=== PATIENT | male | born 1945 | race African-American/Black ===

== ENCOUNTER 2024-05-17 09:45 | Inpatient (IN) ==
--- NOTE | 2024-05-17 09:55 | ED.PDOC ---
General ED Provider: Dr. TONY KHAN MD Chief Complaint: Respiratory Complaint Stated Complaint: This 78 y/o black male comes in by EMS from home. Relatives found him breathing but unresponsive at his address, and called EMS. Last known well is not know for today (would be yesterday when people that were there saw him) he was noted to have vomitus on him and around him on the floor - it is not know if he might have aspirated. He also vomited at least twice while en route via EMS. He IS breathing on his own. He is a dialysis patient. Time Seen by Provider: 05/17/24 09:47 Mode of Arrival: Stretcher Information Source: EMT Exam Limitations: Clinical condition Nursing and Triage Documentation Reviewed and Agree: Yes What is Opioid Naive?: *Opioid Naive implies the patient is not already taking opioids or not chronically receiving opioids on a daily basis. *PRN dosing is not "usually" associated with tolerance. *Patients are at higher risk of over-sedation and aspiration. What is Opioid Tolerant?: *Opioid Tolerance implies less than the expected response to an opioid. *Acquired tolerance is defined by the patient taking 60mg of oral morphine daily (or equianalgesic dose of another opioid) for 1 week or more. *Often associated with chronic pain. *May take more than usual dose to achieve desired pain control. Review of Systems Review Of Systems Constitutional: Reports Other (Patient is unresponsive and no family or friends are here for him, so not much is know of ROS.) Cardiac: Reports Other (atrial fibrillation) GI: Reports Vomiting Neurological: Reports Other (Patient appears completely unresponsive and we see no movements in upper or lower exts) Physical Exam Physical Exam Appearance: Reports Not Applicable (Unresponsive black male with pinpoint pupils. ) Ill-appearing: Not Applicable Pain Distress: Not Applicable Eyes: Reports Other (decreased pupils) ENT: Reports Ears normal, Nose normal and Oropharynx normal Neck: Supple Respiratory: Reports Airway patent and Rhonchi Cardiovascular: Reports Irregular rhythm GI/: Reports Soft and Bowel sounds normal Musculoskeletal: Reports Other (no purpousful movements) Skin: Reports Warm and Dry Neurological: Reports Disoriented and Unresponsive Course Course 05/17/24 10:04 05/17/24 10:04 Orders, Labs, Meds: Lab Review 05/17/24 05/17/24 05/17/24 09:50 09:57 10:04 WBC 10.84 H RBC 4.17 L Hgb 12.7 L Hct 38.6 L MCV 92.6 MCH 30.5 MCHC 32.9 RDW Coeff of Graham 14.9 H Plt Count 239 Immature Gran % (Auto) 0.5 Neut % (Auto) 86.4 H Lymph % (Auto) 9.6 L Licking % (Auto) 2.7 Eos % (Auto) 0.4 Baso % (Auto) 0.4 Neut # (Auto) 9.4 H Lymph # (Auto) 1.0 Licking # (Auto) 0.3 L Eos # (Auto) 0.0 Baso # (Auto) 0.0 Immature Gran # (Auto) 0.1 Puncture Site Rbr Base Excess -5.2 L O2 Saturation 99.8 H ABG pH 7.31 L ABG pCO2 42.0 ABG pO2 229.0 H ABG HCO3 21.1 ABG Total CO2 22.4 Diaz Test + Hemoglobin 1.3 Oxyhemoglobin 95.7 Carboxyhemoglobin 3.1 H Total Hemoglobin 13.0 O2 Delivery Device Ambu FiO2 % 100.0 Sodium 137.0 Potassium 4.78 Chloride 108.1 H Carbon Dioxide 19.6 L Anion Gap 14.08 BUN 40.3 H Creatinine 3.38 H Estimated GFR (MDRD) 18.00 BUN/Creatinine Ratio 11.92 Glucose 214.7 H Lactic Acid 1.63 Calcium 8.71 Magnesium 1.83 Total Bilirubin 0.66 AST 30.0 ALT 25.6 Alkaline Phosphatase 107.1 Troponin I 0.261 H NT-Pro-B Natriuret Pep 62437 H Total Protein 8.16 Albumin 3.96 Globulin 4.20 Albumin/Globulin Ratio 0.94 Urine Color Light Urine Clarity Clear Urine pH 5.5 Ur Specific Chunky 1.025 Urine Protein 3+ H Urine Glucose (UA) Trace H Urine Ketones Negative Urine Blood 2+ H Urine Nitrite Negative Urine Bilirubin Negative Urine Urobilinogen 0.2 Ur Leukocyte Esterase Negative Urine Microscopic RBC 10-20 Urine Microscopic WBC 0-2 Ur Squamous Epith Cells Not present Ur Renal Epithelial Cell 2-5 Urine Bacteria Trace Hyaline Casts 0-2 Granular Casts 2-5 Fine Granular Casts 5-10 Urine Mucus Trace Urine Opiates Screen Negative Ur Oxycodone Screen Negative Urine Methadone Screen Negative Ur Barbiturates Screen Negative U Tricyclic Antidepress Negative Ur Phencyclidine Scrn Negative Ur Amphetamine Screen Negative U Methamphetamines Scrn Negative U Benzodiazepines Scrn Negative Urine Cocaine Screen Negative U Cannabinoids Screen Negative Influ A Molecular Assay Negative by naat Influ B Molecular Assay Negative by naat RSV Antigen Negative by naat SARS CoV-2 RNA Rapid CRISTINO Negative 05/17/24 05/17/24 11:29 14:33 WBC RBC Hgb Hct MCV MCH MCHC RDW Coeff of Graham Plt Count Immature Gran % (Auto) Neut % (Auto) Lymph % (Auto) Licking % (Auto) Eos % (Auto) Baso % (Auto) Neut # (Auto) Lymph # (Auto) Licking # (Auto) Eos # (Auto) Baso # (Auto) Immature Gran # (Auto) Puncture Site Rbr Rbrach Base Excess -5.0 L -4.6 L O2 Saturation 98.4 H 95.6 ABG pH 7.40 7.35 ABG pCO2 32.0 L 38.0 ABG pO2 113.0 H 83.0 L ABG HCO3 19.8 L 21.0 ABG Total CO2 20.8 22.2 Diaz Test + Na Hemoglobin 1.6 H 1.5 Oxyhemoglobin 94.7 L 94.6 L Carboxyhemoglobin 3.3 H 2.2 H Total Hemoglobin 13.1 13.2 O2 Delivery Device Venti mask FiO2 % 50.0 50.0 Sodium Potassium Chloride Carbon Dioxide Anion Gap BUN Creatinine Estimated GFR (MDRD) BUN/Creatinine Ratio Glucose Lactic Acid Calcium Magnesium Total Bilirubin AST ALT Alkaline Phosphatase Troponin I NT-Pro-B Natriuret Pep Total Protein Albumin Globulin Albumin/Globulin Ratio Urine Color Urine Clarity Urine pH Ur Specific Chunky Urine Protein Urine Glucose (UA) Urine Ketones Urine Blood Urine Nitrite Urine Bilirubin Urine Urobilinogen Ur Leukocyte Esterase Urine Microscopic RBC Urine Microscopic WBC Ur Squamous Epith Cells Ur Renal Epithelial Cell Urine Bacteria Hyaline Casts Granular Casts Fine Granular Casts Urine Mucus Urine Opiates Screen Ur Oxycodone Screen Urine Methadone Screen Ur Barbiturates Screen U Tricyclic Antidepress Ur Phencyclidine Scrn Ur Amphetamine Screen U Methamphetamines Scrn U Benzodiazepines Scrn Urine Cocaine Screen U Cannabinoids Screen Influ A Molecular Assay Influ B Molecular Assay RSV Antigen SARS CoV-2 RNA Rapid CRISTINO Orders Category Date Time Status ADMIT PATIENT INPATIENT .TO [facility] (MONITORED BED) ADMISSION 05/17/24 17:51 Active ABG DRAW REQUEST Stat CARDIO 05/17/24 09:50 Completed ABG DRAW REQUEST Stat CARDIO 05/17/24 11:20 Completed ABG DRAW REQUEST Stat CARDIO 05/17/24 14:21 Completed EKG-(ED ONLY) Stat CARDIO 05/17/24 09:55 Completed VENTILATOR Routine CARDIO 05/17/24 15:40 Active TELEMETRY MONITORING TELE CARE 05/17/24 17:51 Active ABG COOX Stat LAB 05/17/24 09:50 Completed ABG COOX Stat LAB 05/17/24 11:29 Completed ABG COOX Stat LAB 05/17/24 14:33 Completed BLOOD CULTURE Stat LAB 05/17/24 11:25 Received CBC W/ AUTO DIFF Stat LAB 05/17/24 10:04 Completed CMP [COMPREHENSIVE METABOLIC PANEL] Stat LAB 05/17/24 10:04 Completed COVID [SARS COV-2 RNA RAPID CRISTINO] Stat LAB 05/17/24 09:57 Completed FLU A & B MOLECULAR [FLU A/B MOLECULAR] Stat LAB 05/17/24 09:57 Completed LACTIC ACID Stat LAB 05/17/24 10:04 Completed MAGNESIUM Stat LAB 05/17/24 10:04 Completed NT-PROBNP(ED) Stat LAB 05/17/24 10:04 Completed RSV Stat LAB 05/17/24 09:57 Completed TROPONIN I Stat LAB 05/17/24 10:04 Completed URINALYSIS C & S IF INDICATED Stat LAB 05/17/24 09:57 Completed URINE DRUG SCREEN (RAPID FOR ED) [DRUG SCREEN, URINE, LAB 05/17/24 09:57 Completed RAPID] Stat Ketamine Meds 05/17/24 14:00 Discontinued 100 mg IVP ONCE ONE Labetalol HCl [Trandate] Meds 05/17/24 15:24 Discontinued 20 mg IVP ONCE ONE Labetalol HCl [Trandate] Meds 05/17/24 16:19 Discontinued 20 mg IVP ONCE ONE Propofol Inj [Diprivan 1,000 mg/100 ml Vial] Meds 05/17/24 14:30 Active 1,000 mg in 100 ml IV TITRATION Propofol Inj [Diprivan 20 ml Vial] Meds 05/17/24 13:54 Discontinued 20 mg IVP ONCE ONE Rocuronium Jasper [Zemuron] Meds 05/17/24 13:54 Discontinued 50 mg IVP ONCE STA CHEST, 1V AP ONLY Stat RADS 05/17/24 09:48 Completed CHEST, 1V AP ONLY Stat RADS 05/17/24 13:[address] HEAD W/O CONTRAST Stat RADS 05/17/24 09:48 Completed Medications Generic Name Dose Route Start Last Admin Trade Name Freq PRN Reason Stop Dose Admin Propofol 1,000 mg in 100 mls @ 3.402 mls/hr 05/17/24 14:30 05/17/24 14:55 Diprivan 1,000 Mg/100 Ml Vial IV 5 mcg/kg/min TITRATION ALEYDA 3.4 mls/hr Administration Protocol 5 MCG/KG/MIN Discontinued Medications Generic Name Dose Route Start Last Admin Trade Name Freq PRN Reason Stop Dose Admin Ketamine HCl 100 mg 05/17/24 14:00 05/17/24 13:41 Ketamine Hcl 200 Mg/20 Ml Sdv IVP 05/17/24 14:01 100 mg ONCE ONE Administration Labetalol HCl 20 mg 05/17/24 15:24 05/17/24 15:34 Labetalol Hcl 20 Mg/4 Ml Disp.Syrin IVP 05/17/24 15:25 20 mg ONCE ONE Administration Labetalol HCl 20 mg 05/17/24 16:19 05/17/24 16:45 Labetalol Hcl 20 Mg/4 Ml Disp.Syrin IVP 05/17/24 16:20 20 mg ONCE ONE Administration Propofol 20 mg 05/17/24 13:54 05/17/24 14:04 Propofol Inj 200 Mg/20 Ml Vial IVP 05/17/24 13:55 20 mg ONCE ONE Administration Rocuronium Jasper 50 mg 05/17/24 13:54 05/17/24 13:42 Rocuronium Jasper 50 Mg/5 Ml Sdv IVP 05/17/24 13:55 50 mg ONCE STA Administration Vital Signs: Temp Pulse Resp BP Pulse Ox O2 Flow Rate 05/17/24 17:10 18 05/17/24 16:09 18 05/17/24 13:55 18 05/17/24 10:00 10 05/17/24 09:47 97.2 F L 92 12 198/104 H 100 Discharge Plan Discharge Patient Disposition: ADMITTED INPATIENT Discharge Problem: Cerebrovascular accident, hemorrhagic Did you review [place] PRICE ECONOMIST for ALL controlled substances?: Not Applicable ED Provider: TONY KHAN Condition: Critical Physician Progress Note: We are getting ABG's, CxR, EKG, CBC, CMP, BnP, LA, BC, Mag, UA, UDS, COVID/Flu/RSV - We do note that the patient's BP is quite high, so considering symptoms and BP, a CVA is certainly a possibility. He is still maintaining good breathing on his own, but I am vigilant on him - any emesis here or dyspnea/apnea and we will intubate immediately. His spO2 = 98 %. We have since learned that the patient [facility], and he is a heavy smoker and drinker of EtOH. He just had the AV fistula placed not long ago, and has not yet been used according to the [facility]. We took the patient to CT, and just upon perusal of the head scan, it appeared to me that he had a bleed/infarct in the area of the hans. Chest Xray showed cardiomegaly with mild interstitial edema. CBC showed all values adequate and CMP showed normal serum electrolytes with advance renal failure. BUN = 40, CR = 3.4 and Glucose = 214. Troponin I is elevated = 0.261 and BnP is very high = 14,700. ABG's show pH = 7.31, pCO2 = 42, pO2 = 229, Sat = 99.8%. His BP = 224/112, P = 75 irregular, RR = 14, Afebrile. EKG - Tracing showed a LBBB, so no further analysis can be taken, he is in atrial fibrillation and a large amount of baseline wander. Rate = 89 BPM and QRS duration [address] segment can not be interpreted due to LBBB. Read and interpreted by me: Dr. Tony Kahn MD Radiologist called and confirmed the CT of the HEAD showed a large hemorrhagic infarct in the hans area, with effacement of the 4th ventricle. I am not certain how he is still breathing, but he is. Still otherwise unresponsive. We have still not been able to locate any family and no one has shown up for this gentleman. We were able to locate a checking clerk that comes by and helps this gentleman, and she gave us some family. He has a brother, Ang, and we called him and I spoke to he and his , and they are coming in from [place]. He also has a son, and they said they would try and locate him. We will get another ABG, so far, airway has not been in jeopardy. RAPID SEQUENCE INTUBATION Patient was having increased secretions, and attempted an emesis, which we quickly suctioned. At this point, we had to secure his airway to prevent aspiration. Ketamine 100 mg IV was given followed by Propofol 20 mg IV, the Rocuronium 50 mg IV. Intubation swiftly accomplished first attempted with 7.5 ET tube via glidascope, colorimetric CO2 change noted quickly. Chest Xray showed ET tube at clavicular level, so we advanced to 26 at the lip, and he is down nicely now at bifurcation. I spoke with Dr House, Neuro at [facility], and she said we had done well so far, but she would start lowering BP slowly at this time - suggested dosing on Labetalol 10 mg until we get systolic around 150 - 180, then possibly a Cardene drip, we will do so and I have given first dose of Labetalol. I then spoke with Dr. Don NEUROSURGEON who commended our care so far, but said there was not a lot else that could be done. He thought a talk with the family about [facility] to be the best course, and he would NOT consider doing a 4th ventricle drainage at this time, but they were too booked up at this time to accept the patient. He agreed that Bp should be brought down, SLOWLY to target level at this time... but there was truly not much hope here. I spoke with [facility] neuro in [facility], Dr. Dunn, neurosurgeon, and she reiterated what Dr. Don had told us; The patient has a very dismal outlook, and it is a waste of resources to move him. No drainage of the ventricle would be attempted, and the patient would be developing huydrocephalus in the near future. She said [facility] should be discussed, which I did with the family, and he would be just as well severed in our hospital as any, and should be kept comfortable. I will talk with the hospitalist here. The family has all stated that they agree he is DO NOT RESUSCITATE (DNR) here now. I spoke with Ms Chucho Ledbetter who is on for hospitalist and gave her the full story. She is fine with placing patient on floor, with [facility], and pain medication. When family is ready, and they have everyone there that they want, I would extubate, which is her plan as well.
[2024-05-17 10:09] LABS: BASOPHILS % (AUTO) 0.4 % (0.0-3.0); EOSINOPHILS % (AUTO) 0.4 % (0.0-7.0); HEMATOCRIT 38.6 % (42.0-52.0); HEMOGLOBIN 12.7 g/dl (14.0-18.0); IMMATURE GRANULOCYTE # (AUTO) 0.1 (0.0-1.0); IMMATURE GRANULOCYTE % (AUTO) 0.5 % (0.0-5.0); LYMPHOCYTES % (AUTO) 9.6 (10.0-50.0); MEAN CORPUSCULAR HEMOGLOBIN 30.5 pg (27.0-31.0); MEAN CORPUSCULAR HGB CONC 32.9 (31.8-35.4); MEAN CORPUSCULAR VOLUME 92.6 fl (80.0-94.0); MONOCYTES # (AUTO) 0.3 K/uL (0.4-2.0); MONOCYTES % (AUTO) 2.7 (0-10); NEUTROPHILS # (AUTO) 9.4 K/ul (2.0-6.9); NEUTROPHILS % (AUTO) 86.4 % (42.2-75.2); PLATELET COUNT 239 10^3/uL (140-440); RDW COEFFICIENT OF VARIATION 14.9 % (11.6-14.8); RED BLOOD COUNT 4.17 10^6/ul (4.70-6.10); WHITE BLOOD COUNT 10.84 K/ul (4.2-10.2)
[2024-05-17 10:14] LABS: BILIRUBIN,URINE Negative (NEGATIVE); CLARITY,URINE Clear (CLEAR); COLOR,URINE Light (YELLOW); GLUCOSE, URINE (UA) Trace (NEGATIVE); KETONES,URINE Negative (NEGATIVE); LEUKOCYTE ESTERASE ,URINE Negative (NEGATIVE); NITRITE,URINE Negative (NEGATIVE); PH,URINE 5.5 (5-9); PROTEIN,URINE 3+ (NEGATIVE); URINE, BLOOD 2+ (NEGATIVE); UROBILINOGEN,URINE 0.2 (0.2)
[2024-05-17 10:15] LABS: SQUAMOUS EPITHELIAL CELL,UR NOT PRESENT (0-5)
[2024-05-17 10:25] LABS: BACTERIA,URINE TRACE (NOT PRESENT); HYALINE CASTS, URINE 0-2 (NOT PRESENT); URINE WBC, MICROSCOPIC 0-2 (0-2)
[2024-05-17 10:25] LABS: ALANINE AMINOTRANSFERASE 25.6 U/L (0-50); ALBUMIN 3.96 g/dL (3.5-5.0); ALKALINE PHOSPHATASE 107.1 U/L (56-119); BILIRUBIN,TOTAL 0.66 mg/dL (0.2-1.3); BLOOD UREA NITROGEN 40.3 mg/dL (9-20); CALCIUM 8.71 mg/dL (8.4-10.2); CARBON DIOXIDE 19.6 mmol/L (22-30.0); CHLORIDE 108.1 mmol/L (98-107); CREATININE 3.38 mg/dL (0.60-1.10); GLUCOSE 214.7 mg/dL (74-106); MAGNESIUM 1.83 mg/dL (1.6-2.3); POTASSIUM 4.78 mmol/L (3.5-5.1); TOTAL PROTEIN 8.16 g/dL (6.3-8.2)
[2024-05-17 10:26] LABS: AMPHETAMINE SCREEN,URINE NEGATIVE (NEGATIVE); BARBITURATE SCREEN,URINE NEGATIVE (NEGATIVE); BENZODIAZEPINES SCREEN,URINE NEGATIVE (NEGATIVE); CANNABINOID SCREEN,URINE NEGATIVE (NEGATIVE); COCAIN SCREEN,URINE NEGATIVE (NEGATIVE); METHADONE URINE SCREEN NEGATIVE (NEGATIVE); METHAMPHETAMINES SCREEN,URINE NEGATIVE (NEGATIVE); MUCUS,URINE TRACE (NOT PRESENT); OPIATE SCREEN,URINE NEGATIVE (NEGATIVE); OXYCODONE URINE SCREEN NEGATIVE (NEGATIVE); PHENCYCLIDINE SCREEN,URINE NEGATIVE (NEGATIVE); TRICYCLIC ANTIDEPRESSANTS URIN NEGATIVE (NEGATIVE)
--- NOTE | 2024-05-17 10:27 | DI ---
EXAM: CHEST RADIOGRAPH TECHNIQUE: Single frontal chest radiograph. HISTORY: Shortness of breath. COMPARISON: 08/19/2015 FINDINGS: EKG leads and monitoring pads project over the chest No pulmonary infiltrate is identified. No pleural effusion or pneumothorax is seen. Interval development of mild cardiomegaly and engorgement with indistinctness of the central pulmonar y vessels. No acute displaced rib fractures are identified. IMPRESSION: 1. Cardiomegaly and mild interstitial edema.
[2024-05-17 10:28] LABS: MOLECULAR FLU A NEGATIVE BY NAAT (NEGATIVE); MOLECULAR FLU B NEGATIVE BY NAAT (NEGATIVE); RSV MOLECULAR NEGATIVE BY NAAT (NEGATIVE); SARS COV-2 RNA RAPID NAAT NEGATIVE (NEGATIVE)
--- NOTE | 2024-05-17 10:36 | CT ---
EXAM: CT OF THE BRAIN WITHOUT CONTRAST CLINICAL INDICATION: unresponsive COMPARISON: None. PROCEDURE: Contiguous axial tomographic sections were obtained from the skull base to the vertex. FINDINGS: There is moderate generalized cerebral involutional change. There are moderate patchy areas of hypodensity in the periventricular white matter, nonspecific but most commonly encountered in the setting of chronic microvascular disease. There is a large area of acute high density intraparenchymal hemorrhage involving the hans measuring approximately 3.6 x 3.5 by a 1.9 cm. There is extension of hemorrhage to the dorsal aspect of the po ns. There is effacement of the adjacent fourth ventricle. No evidence of a gross extra-axial hemorr karen. No midline shift or uncal herniation. No transtentorial herniation. Mild ethmoid mucosal thickening. Complete consolidation right maxillary sinus. Moderate right masto id effusions. the visualized portions of the globes and orbits appear normal. No acute calvarial abn ormalities are seen. IMPRESSION: 1. Abnormal exam. Large acute and parenchymal pontine hemorrhage. Mild effacement of the fourth vent ricle. 2. Moderate involutional change of the brain and suspected sequelae of microvascular disease. 3. Chronic sinus disease as above . Right mastoid effusions. 4. Notification: Above impression and recommendations were discussed by telephone with Khan on 2024 at 10:29 by Mohsen Resendiz MD. All CT scans are performed using dose optimization techniques as appropriate to the performed exam an d include at least one of the following: Automated exposure control, adjustment of the mA and/or kV according t o size, and the use of iterative reconstruction technique.
[2024-05-17 10:37] LABS: TROPONIN I 0.261 ng/ml (0.0000-0.120)
[2024-05-17 11:01] LABS: ABG O2 HGB 95.7 % (95-100); ABG PH 7.31 (7.35-7.45); BEecf -5.2 (-2.0-3.0); COHb 3.1 (0.5-1.5); HCO3 21.1 (21-28); MetHb 1.3 (0-1.5); TCO2 22.4 (19-24); sO2 99.8 % (94-98)
[2024-05-17 11:33] LABS: ABG O2 HGB 94.7 % (95-100); COHb 3.3 (0.5-1.5); HCO3 19.8 (21-28); MetHb 1.6 (0-1.5); TCO2 20.8 (19-24); sO2 98.4 % (94-98); tHb 13.1 g/dl (11.7-17.4)
[2024-05-17] MEDS: KETAMINE IVP ONE (13:41)
[2024-05-17] MEDS: ZEMURON IVP STA (13:42)
[2024-05-17] MEDS ORDERED: KETAMINE IV ONE (13:54)
[2024-05-17] MEDS ORDERED: SODIUM CHLORIDE IV ONE (13:54)
[2024-05-17] MEDS: DIPRIVAN 20 ML VIAL IVP ONE (14:04)
--- NOTE | 2024-05-17 14:10 | DI ---
EXAM: CHEST RADIOGRAPH TECHNIQUE: Single frontal chest radiograph. HISTORY: Tube placement COMPARISON: 05/17/2024 FINDINGS: There is bibasilar atelectasis, right greater than left. Endotracheal tube is above the garcia in th e middle of the trachea. Mild cardiomegaly. The osseous structures are unremarkable. IMPRESSION: 1. Placement of endotracheal tube with bibasilar atelectasis
[2024-05-17] MEDS: DIPRIVAN 1,000 MG/100 ML VIAL 1,000 MG/100 ML INFUS..BTL IV SCH (14:55)
[2024-05-17 15:00] LABS: ABG PH 7.35 (7.35-7.45)
[2024-05-17 15:01] LABS: BEecf -4.6 (-2.0-3.0); COHb 2.2 (0.5-1.5); MetHb 1.5 (0-1.5); TCO2 22.2 (19-24); sO2 95.6 % (94-98); tHb 13.2 g/dl (11.7-17.4)
[2024-05-17 15:03] LABS: ABG O2 HGB 94.6 % (95-100)
[2024-05-17] MEDS: TRANDATE IVP ONE ×2 (15:34→16:45)
[2024-05-17] MEDS ORDERED: ATIVAN IVP PRN (18:53)
[2024-05-17] MEDS: TRANSDERM-SCOP 1.5 MG PATCH TD SCH (21:37)
[2024-05-17 23:10] VITALS: BMI 32.8
[2024-05-18] MEDS: TRANDATE IVP PRN (05:52)
[2024-05-18] MEDS: ZOFRAN SDV IVP PRN (09:16)
[2024-05-18] MEDS: MORPHINE 2 MG/ML SYRINGE IVP PRN (09:49)
[2024-05-18 09:56] VITALS: RESP 18
--- NOTE | 2024-05-18 11:24 | DI ---
EXAM: SINGLE-VIEW ABDOMEN HISTORY: Tube placement COMPARISON: None. FINDINGS: / impression: There is bibasilar consolidation. Enteric tube extends into the upper body o f the stomach. There is a nonobstructive bowel gas pattern.. 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 i
--- NOTE | 2024-05-18 12:47 | PCM ---
Date of Service Date Seen by Provider: 05/18/24 Time Seen by Provider: 09:00 Admit Day/Time Admission Date: 05/17/24 Reason for Admission Chief Complaint: HEMORRHAGIC STROKE Hospital Provider [facility] History of Present Illness History of Present Illness: 78 yo male presented to the ER after being found unresponsive but breathing at home. Unknown length of downtime. 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 Mild effacement of the fourth ventricle. ER provider contacted multiple facilities for transfer and all declined and states there is no intervention at this point. Patient later began vomiting with concerns for airway compromise. He was then intubated. Family requested that he remain intubated until they can all be present for his passing. Admitted to med/surg inpatient for comfort measures only. Case Discussed With Case Discussed With: Patient's case was discussed with the ER Physicians, Dr. Khan. [facility] Medical History CVA (cerebrovascular accident) I63.9 - Cerebral infarction, unspecified (ICD-10) Family History Other No known health problems Social History Smoking and tobacco status: Current every day smoker Alcohol intake: current Allergies Allergies Allergy/AdvReac Type Severity Reaction Status Date / Time Unobtainable Allergy Verified 05/17/24 10:55 Current Medications Home Medications Propofol (Diprivan 1,000 Mg/100 Ml Vial) 1,000 mg in 100 mls @ 3.402 mls/hr IV TITRATION ALEYDA; Protocol Last Admin: 05/18/24 12:30 Dose: 15 mcg/kg/min, 10.2 mls/hr Labetalol HCl (Labetalol Hcl 20 Mg/4 Ml Disp.Syrin) 10 mg IVP Q4H PRN PRN Reason: Hypertension Last Admin: 05/18/24 05:52 Dose: 10 mg Lorazepam (Lorazepam Inj 2 Mg/Ml Vial) 2 mg IVP Q2H PRN PRN Reason: Agitation Morphine Sulfate (Morphine Sulfate 2 Mg/Ml Syringe) 2 mg IVP Q2H PRN PRN Reason: Pain Last Admin: 05/18/24 09:49 Dose: 2 mg Ondansetron HCl (Ondansetron Hcl/Pf 4 Mg/2 Ml Sdv) 4 mg IVP Q6H PRN PRN Reason: Nausea / Vomiting Last Admin: 05/18/24 09:16 Dose: 4 mg Scopolamine HBr (Scopolamine Hydrobromide 1.5 Mg Patch.Td72) 1 patch TD Q72HR ALEYDA Last Admin: 05/17/24 21:37 Dose: 1 patch 1 [Unobtainable] 05/17/24 [History Confirmed 05/17/24] Opioid Naive vs. Tolerant Does Patient Take Opioids?: No Is Patient Opioid Naive?: Yes What is Opioid Naive?: *Opioid Naive implies the patient is not already taking opioids or not chronically receiving opioids on a daily basis. *PRN dosing is not "usually" associated with tolerance. *Patients are at higher risk of over-sedation and aspiration. Is Patient Opioid Tolerant?: No What is Opioid Tolerant?: *Opioid Tolerance implies less than the expected response to an opioid. *Acquired tolerance is defined by the patient taking 60mg of oral morphine daily (or equianalgesic dose of another opioid) for 1 week or more. *Often associated with chronic pain. *May take more than usual dose to achieve desired pain control. Physical examination Most Recent Vital Signs: Most Recent Vital Signs Temperature 100.0 F 05/18/24 12:00 Temperature Source Temporal Artery Scan 05/18/24 12:00 Temperature Source Infrared 05/17/24 09:47 Pulse Rate 113 H 05/18/24 12:00 Respiratory Rate 18 05/18/24 12:00 Blood Pressure 215/105 H 05/18/24 12:00 Blood Pressure Mean 141 05/18/24 12:00 Blood Pressure Right Arm 195/87 05/17/24 20:23 Blood Pressure Location Right Arm 05/18/24 12:00 Blood Pressure Position Supine 05/18/24 12:00 O2 Sat by Pulse Oximetry 98 05/18/24 12:00 Oxygen Delivery Method Ventilator 05/18/24 12:00 Oxygen Flow Rate 10 05/17/24 10:00 Height 6 ft 1 in 05/17/24 20:23 Weight 113 kg 05/17/24 20:23 Telemetry Type Bedside Monitor 05/18/24 07:00 Telemetry Monitoring Continues 05/18/24 07:00 Telemetry Heart Rate 104 H 05/18/24 07:00 Telemetry SPO2 100 05/18/24 07:00 EKG AL Interval 0.14 05/18/24 07:00 EKG QRS Interval 0.07 05/18/24 07:[address] 05/18/24 07:00 Appearance: Positive No Apparent Distress HEENT: Positive Normocephalic and Other (pupils pinpoint, nonreactive to light) Neck: Positive Supple and Midline Trachea Chest/Lungs: Positive Symmetrical With Equal Breath Sounds, Clear to Auscultation Bilaterally and Good Air Movement all 4 Lung Stewart Heart: Positive RRR and Pulses Normal GI/: Positive Soft, Nontender, Bowel Sounds Normal and No Distention Musculoskeletal: Positive Not Examined Extremities: Positive Intact Peripheral Pulses and Other (cool BLE) Neurological: Positive Other (unresponsive to all stimuli, no noted voluntary or involuntary movements. ) Labs This Visit Labs This Visit: Labs This Visit 05/17/24 05/17/24 05/17/24 09:50 09:57 10:04 WBC 10.84 H RBC 4.17 L Hgb 12.7 L Hct 38.6 L MCV 92.6 MCH 30.5 MCHC 32.9 RDW Coeff of Graham 14.9 H Plt Count 239 Immature Gran % (Auto) 0.5 Neut % (Auto) 86.4 H Lymph % (Auto) 9.6 L Boyle % (Auto) 2.7 Eos % (Auto) 0.4 Baso % (Auto) 0.4 Neut # (Auto) 9.4 H Lymph # (Auto) 1.0 Boyle # (Auto) 0.3 L Eos # (Auto) 0.0 Baso # (Auto) 0.0 Immature Gran # (Auto) 0.1 Puncture Site Rbr Base Excess -5.2 L O2 Saturation 99.8 H ABG pH 7.31 L ABG pCO2 42.0 ABG pO2 229.0 H ABG HCO3 21.1 ABG Total CO2 22.4 Diaz Test + Hemoglobin 1.3 Oxyhemoglobin 95.7 Carboxyhemoglobin 3.1 H Total Hemoglobin 13.0 O2 Delivery Device Ambu FiO2 % 100.0 Sodium 137.0 Potassium 4.78 Chloride 108.1 H Carbon Dioxide 19.6 L Anion Gap 14.08 BUN 40.3 H Creatinine 3.38 H Estimated GFR (MDRD) 18.00 BUN/Creatinine Ratio 11.92 Glucose 214.7 H Lactic Acid 1.63 Calcium 8.71 Magnesium 1.83 Total Bilirubin 0.66 AST 30.0 ALT 25.6 Alkaline Phosphatase 107.1 Troponin I 0.261 H NT-Pro-B Natriuret Pep 48308 H Total Protein 8.16 Albumin 3.96 Globulin 4.20 Albumin/Globulin Ratio 0.94 Urine Color Light Urine Clarity Clear Urine pH 5.5 Ur Specific Semora 1.025 Urine Protein 3+ H Urine Glucose (UA) Trace H Urine Ketones Negative Urine Blood 2+ H Urine Nitrite Negative Urine Bilirubin Negative Urine Urobilinogen 0.2 Ur Leukocyte Esterase Negative Urine Microscopic RBC 10-20 Urine Microscopic WBC 0-2 Ur Squamous Epith Cells Not present Ur Renal Epithelial Cell 2-5 Urine Bacteria Trace Hyaline Casts 0-2 Granular Casts 2-5 Fine Granular Casts 5-10 Urine Mucus Trace Urine Opiates Screen Negative Ur Oxycodone Screen Negative Urine Methadone Screen Negative Ur Barbiturates Screen Negative U Tricyclic Antidepress Negative Ur Phencyclidine Scrn Negative Ur Amphetamine Screen Negative U Methamphetamines Scrn Negative U Benzodiazepines Scrn Negative Urine Cocaine Screen Negative U Cannabinoids Screen Negative Influ A Molecular Assay Negative by naat Influ B Molecular Assay Negative by naat RSV Antigen Negative by naat SARS CoV-2 RNA Rapid CRISTINO Negative 05/17/24 05/17/24 11:29 14:33 WBC RBC Hgb Hct MCV MCH MCHC RDW Coeff of Graham Plt Count Immature Gran % (Auto) Neut % (Auto) Lymph % (Auto) Boyle % (Auto) Eos % (Auto) Baso % (Auto) Neut # (Auto) Lymph # (Auto) Boyle # (Auto) Eos # (Auto) Baso # (Auto) Immature Gran # (Auto) Puncture Site Rbr Rbrach Base Excess -5.0 L -4.6 L O2 Saturation 98.4 H 95.6 ABG pH 7.40 7.35 ABG pCO2 32.0 L 38.0 ABG pO2 113.0 H 83.0 L ABG HCO3 19.8 L 21.0 ABG Total CO2 20.8 22.2 Diaz Test + Na Hemoglobin 1.6 H 1.5 Oxyhemoglobin 94.7 L 94.6 L Carboxyhemoglobin 3.3 H 2.2 H Total Hemoglobin 13.1 13.2 O2 Delivery Device Venti mask FiO2 % 50.0 50.0 Sodium Potassium Chloride Carbon Dioxide Anion Gap BUN Creatinine Estimated GFR (MDRD) BUN/Creatinine Ratio Glucose Lactic Acid Calcium Magnesium Total Bilirubin AST ALT Alkaline Phosphatase Troponin I NT-Pro-B Natriuret Pep Total Protein Albumin Globulin Albumin/Globulin Ratio Urine Color Urine Clarity Urine pH Ur Specific Semora Urine Protein Urine Glucose (UA) Urine Ketones Urine Blood Urine Nitrite Urine Bilirubin Urine Urobilinogen Ur Leukocyte Esterase Urine Microscopic RBC Urine Microscopic WBC Ur Squamous Epith Cells Ur Renal Epithelial Cell Urine Bacteria Hyaline Casts Granular Casts Fine Granular Casts Urine Mucus Urine Opiates Screen Ur Oxycodone Screen Urine Methadone Screen Ur Barbiturates Screen U Tricyclic Antidepress Ur Phencyclidine Scrn Ur Amphetamine Screen U Methamphetamines Scrn U Benzodiazepines Scrn Urine Cocaine Screen U Cannabinoids Screen Influ A Molecular Assay Influ B Molecular Assay RSV Antigen SARS CoV-2 RNA Rapid CRISTINO Microbiology This Visit 05/17/24 11:25 Blood Blood Culture - Preliminary NEGATIVE AFTER 1 DAY. 05/17/24 10:04 Blood Blood Culture - Preliminary NEGATIVE AFTER 1 DAY. Imaging Imaging: EXAM: CHEST RADIOGRAPH TECHNIQUE: Single frontal chest radiograph. HISTORY: Shortness of breath. COMPARISON: 08/19/2015 FINDINGS: EKG leads and monitoring pads project over the chest No pulmonary infiltrate is identified. No pleural effusion or pneumothorax is seen. Interval development of mild cardiomegaly and engorgement with indistinctness of the central pulmonary vessels. No acute displaced rib fractures are identified. IMPRESSION: 1. Cardiomegaly and mild interstitial edema. Review Statement Review Statement: I have independently reviewed and interpreted the labs/EKGs/imaging that were ordered by the ER provider. I have reviewed all outside records that are available currently in our EMR including imaging/notes/labs from previous visits. Plan Plan: 1. Hemorrhagic Stroke Family elected to comfort measures only and signed DNR last night. Discussed plan with Annie, sister in law. Family is in agreement that they all are able to be present around 4:30-5:00pm today. Plan is to extubate at that time and continue comfort measures until patient passes with family at bedside. DVT Prophylaxis: none Time Spent: Greater than 80 minutes spent with patient, 50% of the time spent with this patient was devoted to counseling and coordination of care. [facility]annin minutes spent discussing advance care planning. Disposition: Admit to: Med/Surg Inpatient DNR Discussed Plan of Care with Dr. Petty Logan. Medications Medication Orders: Medications Ordered Category Date Time Status Labetalol HCl [Trandate] Meds 05/17/24 21:03 Active 10 mg IVP Q4H PRN Lorazepam [Ativan] Meds 05/17/24 18:53 Active 2 mg IVP Q2H PRN Morphine Sulfate [Morphine 2 mg/ml Syringe] Meds 05/17/24 18:53 Active 2 mg IVP Q2H PRN Ondansetron HCl/Pf [Zofran Sdv] Meds 05/18/24 08:56 Active 4 mg IVP Q6H PRN Propofol Inj [Diprivan 1,000 mg/100 ml Vial] Meds 05/17/24 14:30 Active 1,000 mg in 100 ml IV TITRATION Scopolamine Hydrobromide [Transderm-Scop 1.5 mg Patch] Meds 05/17/24 20:00 Active 1 patch TD Q72HR
[2024-05-18] MEDS: ACETAMINOPHEN 1,000 MG/100 ML BAG IV PRN (14:21)
[2024-05-18 16:03] VITALS: TEMP 100.4
[2024-05-18 17:42] VITALS: BP 210/100; PULSE 84
--- NOTE | 2024-05-18 19:39 | DCSUM ---
Admission Date Admission Date: 05/17/24 Discharge Date Discharge Date: 05/18/24 Admission Diagnosis Admission Diagnosis: 1. Hemorrhagic Stroke Discharge Diagnosis Discharge Diagnosis: 1. Hemorrhagic Stroke Hospital Provider Hospital [facility]LINE GATES[facility] Summary of History and Physical Summary of History and Physical: 78 yo male presented to the ER after being found unresponsive but breathing at home. Unknown length of downtime. 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 Mild effacement of the fourth ventricle. ER provider contacted multiple facilities for transfer and all declined and states there is no intervention at this point. Patient later began vomiting with concerns for airway compromise. He was then intubated. Family requested that he remain intubated until they can all be present for his passing. Admitted to med/surg inpatient for comfort measures only. Hospital Course Subjective: Per family request patient remained intubated on the ventilator until all family was able to arrive with propofol infusing. Ativan and morphine ordered prn as well as scopolamine patch. NG tube placed for decompression of the stomach. Return with bloody/coffee ground contents. Extubated at 1930. Asystole on the monitor around 1928. Auscultated heart sounds for 1 full minute with absence noted. Time of 1939. Vital Signs: Most Recent Vital Signs Temperature 100.4 F H 05/18/24 16:00 Temperature Source Temporal Artery Scan 05/18/24 16:00 Temperature Source Infrared 05/17/24 09:47 Pulse Rate 84 05/18/24 17:40 Respiratory Rate 18 05/18/24 17:40 Blood Pressure 210/100 H 05/18/24 17:40 Blood Pressure Mean 136 05/18/24 17:40 Blood Pressure Right Arm 195/87 05/17/24 20:23 Blood Pressure Location Right Arm 05/18/24 17:40 Blood Pressure Position Supine 05/18/24 17:40 O2 Sat by Pulse Oximetry 100 05/18/24 17:40 Oxygen Delivery Method Ventilator 05/18/24 17:40 Oxygen Flow Rate 10 05/17/24 10:00 Height 6 ft 1 in 05/17/24 20:23 Weight 113 kg 05/17/24 20:23 Telemetry Type Bedside Monitor 05/18/24 13:00 Telemetry Monitoring Continues 05/18/24 13:00 Telemetry Heart Rate 114 H 05/18/24 13:00 Telemetry SPO2 100 05/18/24 13:00 EKG AK Interval 0.14 05/18/24 13:00 EKG QRS Interval 0.09 05/18/24 13:[address] 05/18/24 13:00 Imaging: EXAM: CT OF THE BRAIN WITHOUT CONTRAST CLINICAL INDICATION: unresponsive COMPARISON: None. PROCEDURE: Contiguous axial tomographic sections were obtained from the skull ba se to the vertex. FINDINGS: There is moderate generalized cerebral involutional change. There are moderate patchy areas of hypodensity in the periventricular white matter, nonspecific but most commonly encountered in the setting of chronic microvascular disease. There is a large area of acute high density intraparenchymal hemorrhage involving the hans measuring approximately 3.6 x 3.5 by a 1.9 cm. There is extension of hemorrhage to the dorsal aspect of the hans. There is effacement of the adjacent fourth ventricle. No evidence of a gross extra-axial hemorrhage. No midline shift or uncal herniation. No transtentorial herniation. Mild ethmoid mucosal thickening. Complete consolidation right maxillary sinus. Moderate right mastoid effusions. the visualized portions of the globes and orbits appear normal. No acute calvarial abnormalities are seen. IMPRESSION: 1. Abnormal exam. Large acute and parenchymal pontine hemorrhage. Mild effacement of the fourth ventricle. 2. Moderate involutional change of the brain and suspected sequelae of microvascular disease. 3. Chronic sinus disease as above . Right mastoid effusions. 4. Notification: Above impression and recommendations were discussed by telephone with Bill on 05/17/2024 at 10:29 by Mohsen Resendiz MD. EXAM: CHEST RADIOGRAPH TECHNIQUE: Single frontal chest radiograph. HISTORY: Shortness of breath. COMPARISON: 08/19/2015 FINDINGS: EKG leads and monitoring pads project over the chest No pulmonary infiltrate is identified. No pleural effusion or pneumothorax is seen. Interval development of mild cardiomegaly and engorgement with indistinctness of the central pulmonary vessels. No acute displaced rib fractures are identified. IMPRESSION: 1. Cardiomegaly and mild interstitial edema. Discharge Instructions Discharge Planning: Discharge Planning > 40 minutes If patient is discharged with left ventricular systolic dysfunction: no Discharged with a beta kristin? [] If no, why not? [] Discharged with an nathanael/arb? [] If no, why not? [] Time of : 193905/18/2024 Discharge Medications: Home Medications Propofol (Diprivan 1,000 Mg/100 Ml Vial) 1,000 mg in 100 mls @ 3.402 mls/hr IV TITRATION [facility]; Protocol Last Titration: 05/18/24 15:11 Dose: 15 mcg/kg/min, 10.2 mls/hr Acetaminophen (Acetaminophen) 1,000 mg in 100 mls @ 400 mls/hr IV Q6HR PRN PRN Reason: Pain Last Admin: 05/18/24 14:21 Dose: 400 mls/hr Labetalol HCl (Labetalol Hcl 20 Mg/4 Ml Disp.Syrin) 10 mg IVP Q4H PRN PRN Reason: Hypertension Last Admin: 05/18/24 05:52 Dose: 10 mg Lorazepam (Lorazepam Inj 2 Mg/Ml Vial) 2 mg IVP Q2H PRN PRN Reason: Agitation Morphine Sulfate (Morphine Sulfate 2 Mg/Ml Syringe) 2 mg IVP Q2H PRN PRN Reason: Pain Last Admin: 05/18/24 09:49 Dose: 2 mg Ondansetron HCl (Ondansetron Hcl/Pf 4 Mg/2 Ml Sdv) 4 mg IVP Q6H PRN PRN Reason: Nausea / Vomiting Last Admin: 05/18/24 09:16 Dose: 4 mg Scopolamine HBr (Scopolamine Hydrobromide 1.5 Mg Patch.Td72) 1 patch TD Q72HR ALEYDA Last Admin: 05/17/24 21:37 Dose: 1 patch Discharge Plan Discharge Discharge Orders: Discharge Patient (ONCE); Ordered 05/18/24 Ordered By: PEARL OROPEZA Patient Disposition: Did you review [place] [employer] for ALL controlled substances?: No Discussed opioids are addictive and Narcan is available by prescription or from pharmacy.: No Condition: Critical Date/Time: 05/18/24 19:40
== END 2024-05-18 21:47 | disposition expired | DRG 66 ==
LOC: ED 09:45 → MEDSURG B 18:23 → SCU 18:56
PROVIDERS: ADMIT Hospitalist; ATTEND Nurse Practitioner Family